=== PATIENT | male | born 1990 | race Caucasian/White ===

== ENCOUNTER 2016-06-08 13:16 | Inpatient (IN) | payer BC ==
[~2016-06-08] VITALS: Ht 165.1 cm; Wt 118.0 kg
[2016-06-08 14:30] VITALS: BP 128/68; PULSE 96; RESP 20; Ht 165.1 cm; Wt 118.0 kg
[2016-06-08 14:39] VITALS: PULSE 98
[2016-06-08] MEDS ORDERED: LORAZEPAM 2 MG INJ IV PRN (16:00)
[2016-06-08] MEDS ORDERED: ONDANSETRON 4 MG INJ IV PRN (16:00)
[2016-06-08] MEDS ORDERED: HYDROCODONE/APAP (5/325) TAB PO PRN (16:00)
[2016-06-08] MEDS ORDERED: ACETAMINOPHEN 325 MG TAB PO PRN (16:00)
[2016-06-08] MEDS ORDERED: NACL 0.9% 3 ML SYG IV SCH (16:00)
[2016-06-08 16:09] VITALS: BP 140/67; RESP 17
[2016-06-08 16:34] VITALS: PULSE 99
[2016-06-08] MEDS ORDERED: hydrALAzine 20 MG INJ IV PRN (17:00)
[2016-06-08 17:28] LABS: ADD SCAN DIFF NO
[2016-06-08 17:30] LABS: BASOPHIL # 0.1 10^3/ul (0.0-0.1); BASOPHILS % 0.4 % (0.0-2.0); EOSINOPHILS % 0.3 % (0.0-7.0); HEMATOCRIT 46.9 % (42.0-52.0); HEMOGLOBIN 15.5 g/dl (14.0-18.0); LYMPHOCYTES # 2.5 10^3/ul (0.8-2.9); LYMPHOCYTES % 16.4 % (15.0-51.0); MEAN CORPUSCULAR HEMOGLOBIN 27.9 pg (29.0-33.0); MEAN CORPUSCULAR VOLUME 84.5 fl (82.0-101.0); MEAN PLATELET VOLUME 10.6 fl (7.4-10.4); MONOCYTE # 0.9 10^3/ul (0.3-0.9); MONOCYTES % 5.7 % (0.0-11.0); NEUTROPHIL # 11.8 10^3/ul (1.6-7.5); NEUTROPHILS % 76.7 % (39.0-77.0); PLATELET COUNT 331 10^3/UL (140-415); RED BLOOD COUNT 5.55 10^6/ul (4.70-6.10); RED CELL DISTRIBUTION WIDTH 13.6 % (11.5-14.5); WHITE BLOOD COUNT 15.3 10^3/ul (4.8-10.8)
--- NOTE | 2016-06-08 17:36 | HP ---
DATE OF ADMISSION: 06/08/2016 REASON FOR ADMISSION: Transferred from [facility] for further evaluation of chest pain and EKG changes because of insurance reasons. SANDWICH COUNTER ATTENDANT: Coy Porras MD, Cardiology. HISTORY OF PRESENT ILLNESS: This is a 25-year-old male who denies any significant past medical history, who went to the emergency room at [facility] because of chest pressure that has been going on and off for the past 2 weeks. The patient verbalized that he has been having chest pressure, both on the right and left sides with some radiation of the pressure to the left shoulder blade on and off for the past 2 weeks. The patient denied any relieving or exacerbating factors. The patient also verbalized some vague dyspnea associated with this pain. He denied any associated nausea, vomiting or diaphoresis. The patient verbalized that he uses marijuana every couple of weeks. He is also a drinker. In the emergency room at [facility], the patient underwent a 12-lead EKG, which as per the ER physician showed T- wave inversions in leads III, aVF and V6 with Q-waves in leads III, aVF and aVR. Of note, this is as per the ER physician's documentation. I could not find the 12-lead EKG done at [facility]. The patient's D-dimer was negative. The patient's troponin I x1 was negative. The patient had a WBC of 15,000 and his urine drug screen was positive for cannabinoids. His random blood glucose was 112. His chest x-ray was negative. The patient was transferred to [facility] for further evaluation of his findings because of insurance reasons. PAST MEDICAL HISTORY: Denies. PAST SURGICAL HISTORY: Denies. HOME MEDICATIONS: None. ALLERGIES: NO KNOWN ALLERGIES. SOCIAL HISTORY: The patient lives at home. Currently works in a warehouse. Denies any tobacco use. Uses marijuana every 2 weeks. Social drinker. FAMILY HISTORY: Positive for diabetes and hypertension. No history of CAD. REVIEW OF SYSTEMS: A 12-point review of systems was made and the review of systems was negative other than what is mentioned in the history of present illness. PHYSICAL EXAMINATION: VITAL SIGNS: Temperature 98.0, pulse rate 91, respiratory rate 17, blood pressure 140/67, oxygen saturation 91% on room air. GENERAL: This is a morbidly obese male lying in bed in no apparent distress. HEENT: Head normocephalic and atraumatic. Eyes: Anicteric sclerae. Conjunctivae clear. ENT: Nasal septum is midline. Oral mucosa is moist. NECK: Supple. No JVD noticed. RESPIRATORY: Bilaterally clear to auscultation. No adventitious breath sounds heard. No use of accessory muscles of respiration. CARDIAC: Regular rhythm and rate. No murmurs. GASTROINTESTINAL: Abdomen soft, nontender and nondistended. Bowel sounds positive in all 4 quadrants. GENITOURINARY: Deferred. EXTREMITIES: No cyanosis, no clubbing, no edema. Peripheral pulses palpable. NEUROLOGIC: The patient is awake, alert and oriented. Cranial nerves are grossly intact. LABORATORY AND DIAGNOSTIC DATA: From [facility].Troponin T less than 0.01. WBC 15.0, hemoglobin 15.6, hematocrit 47.4, platelet count 292. Sodium 140, potassium 4.8, chloride 104, carbon dioxide 23, anion gap 11, BUN 11, creatinine 0.84, glucose 112, calcium 9, GFR greater than 60. TSH is 0.73. Free T4 is 1.20. BNP 18. D-dimer less than 0.27. Urine drug screen positive for cannabinoids. Chest x-ray. Normal chest x-ray. IMPRESSION: This is a 25-year-old male who went to the emergency room at [facility] because of nonspecific chest discomfort who was found to have some EKG changes, who will be admitted to [facility] because of insurance reasons for further management and evaluation. ASSESSMENT AND PLAN: 1. Atypical chest discomfort with reported EKG changes. As mentioned in the history of present illness, the patient had some ST-T changes and Q-waves as per the ER physician's documentation. However, the 12-lead EKG at [facility] did not show any evidence of Q-waves in any leads or any T -wave inversions. Nevertheless, the patient will be evaluated by a welder gas. Serial troponins will be ordered. A 2D echocardiogram will be ordered to evaluate the left ventricular ejection fraction, to evaluation for any wall motion abnormalities. 2. Morbid obesity. BMI of 43.3 kg/meter square. Weight reduction will be advised. A fasting lipid panel and a hemoglobin A1c will be obtained. 3. Leukocytosis on labs from [facility]. We will repeat a CBC. The patient denied any febrile illness. Plan. The patient is currently admitted to inpatient telemetry floor. The patient will be started on a regular diet. The patient will be started on DVT prophylaxis and gastrointestinal prophylaxis. The patient will remain a FULL CODE. The rest of the patient's management will be based on the clinical course, the results of diagnostic studies, and input from consultants. Based on the patient's clinical presentation, he most probably requires at least 1 midnight's stay for further management and evaluation of his clinical presentation. The case and management of this patient was fully discussed with Dr. Chowdary. KRIS CHOWDARY MD, AM/IVAN Conf#: [id number] DID#: [id number] MTDD
[2016-06-08 17:56] LABS: CREATINE KINASE 255 IU/L (23-200)
[2016-06-08 17:58] LABS: ALBUMIN 4.5 g/dl (3.3-4.9); ALBUMIN/GLOBULIN RATIO 1.32; BILIRUBIN,INDIRECT 0.2 mg/dl (0-1.1); BILIRUBIN,TOTAL 0.2 mg/dl (0.2-1.3); CALCIUM 9.4 mg/dl (8.4-10.2); CREATININE 0.7 mg/dl (0.61-1.24); MAGNESIUM 1.8 mg/dl (1.7-2.5); POTASSIUM 4.2 mmol/L (3.5-5.1); TOTAL PROTEIN 7.9 g/dl (6.1-8.1)
[2016-06-08 18:13] LABS: CK-MB 1.89 ng/ml (0.0-2.4); TROPONIN-I < 0.012 ng/ml (0.00-0.12)
[2016-06-08 18:28] LABS: THYROID STIMULATING HORMONE 0.403 MIU/L (0.465-4.680)
[2016-06-08 19:45] VITALS: BP 139/66; PULSE 85; RESP 18
[2016-06-08 20:16] VITALS: PULSE 82
[2016-06-08] MEDS: FAMOTIDINE 20 MG TAB PO SCH (20:29)
[2016-06-09] VITALS (11 sets, daily range): BP systolic 110–156; BP diastolic 58–110; PULSE 67–94; RESP 18
[2016-06-09 08:09] LABS: ADD SCAN DIFF NO
[2016-06-09 08:17] LABS: BASOPHIL # 0.1 10^3/ul (0.0-0.1); BASOPHILS % 0.6 % (0.0-2.0); EOSINOPHILS # 0.2 10^3/ul (0.0-0.5); EOSINOPHILS % 2.1 % (0.0-7.0); HEMATOCRIT 49.5 % (42.0-52.0); HEMOGLOBIN 15.8 g/dl (14.0-18.0); LYMPHOCYTES # 2.8 10^3/ul (0.8-2.9); LYMPHOCYTES % 29.9 % (15.0-51.0); MEAN CORPUSCULAR HEMOGLOBIN 27.7 pg (29.0-33.0); MEAN CORPUSCULAR HGB CONC 31.9 g/dl (32.0-37.0); MEAN CORPUSCULAR VOLUME 86.7 fl (82.0-101.0); MEAN PLATELET VOLUME 10.9 fl (7.4-10.4); MONOCYTE # 0.8 10^3/ul (0.3-0.9); MONOCYTES % 8.8 % (0.0-11.0); NEUTROPHIL # 5.4 10^3/ul (1.6-7.5); NEUTROPHILS % 57.9 % (39.0-77.0); PLATELET COUNT 311 10^3/UL (140-415); RED BLOOD COUNT 5.71 10^6/ul (4.70-6.10); RED CELL DISTRIBUTION WIDTH 13.9 % (11.5-14.5); WHITE BLOOD COUNT 9.4 10^3/ul (4.8-10.8)
[2016-06-09 08:37] LABS: ALANINE AMINOTRANSFERASE 97 IU/L (13-69); ALBUMIN 4.3 g/dl (3.3-4.9); ALBUMIN/GLOBULIN RATIO 1.16; ALKALINE PHOSPHATASE 75 IU/L (42-121); ANION GAP 11 (8-16); ASPARTATE AMINO TRANSFERASE 54 IU/L (15-46); BILIRUBIN,INDIRECT 0.6 mg/dl (0-1.1); BILIRUBIN,TOTAL 0.6 mg/dl (0.2-1.3); BLOOD UREA NITROGEN 15 mg/dl (7-20); CALCIUM 9.2 mg/dl (8.4-10.2); CARBON DIOXIDE 28 mmol/L (21-31); CHLORIDE 102 mmol/L (97-110); CHOL/HDL RATIO 5.2 RATIO; CHOLESTEROL 220 mg/dl (100-200); CREATINE KINASE 197 IU/L (23-200); CREATININE 0.75 mg/dl (0.61-1.24); CREATININE 0.76 mg/dl (0.61-1.24); GLUCOSE 106 mg/dl (70-220); HDL CHOLESTEROL 42 mg/dl (30-63); PHOSPHORUS 2.6 mg/dl (2.5-4.9); POTASSIUM 4.6 mmol/L (3.5-5.1); POTASSIUM 4.9 mmol/L (3.5-5.1); SODIUM 136 mmol/L (135-144); TRIGLYCERIDES 262 mg/dl (0-149)
[2016-06-09 08:50] LABS: CK-MB 1.61 ng/ml (0.0-2.4); TROPONIN-I < 0.012 ng/ml (0.00-0.12)
[2016-06-09] MEDS: FAMOTIDINE 20 MG TAB PO SCH (09:51)
[2016-06-09] MEDS ORDERED: ASPI-664 PO (12:22)
[2016-06-09] MEDS ORDERED: SIMV20TA2 PO (12:22)
--- NOTE | 2016-06-09 14:00 | PDOCDIS ---
Discharge Instructions DIAGNOSIS Discharge Diagnosis: chest pain CONDITION Patient Condition: Stable HOME CARE INSTRUCTIONS: Diet Instructions: Reduced Calorie ACTIVITY: Activity Restrictions: Slowly Increase Activity Rest between Activity FOLLOW UP/APPOINTMENTS Appointments Followup with your primary doctor within the next 1-2 weeks. If you don't have one please let someone know, we can give you resources that may help you pick one. You may call Dr Stephan Dooley's office. he's accepting new patients Name, Degree: Stephan Dooley MD Specialty: Internal Medicine Comments: Office Address: [address] [place] [address] [place], [place] [id number] Office Office You may also call your insurance company to assign one to you. Review your medication list with your nurse before leaving and if you need new prescriptions please let your nurse know. I may have made changes to your home medications or given you new prescriptions , please let your primary doctor know as well. Stay compliant with your medications and report any side effects to your PCP or pharmacist. Return to the ER if you have any concerns and cannot reach your doctors or call your insurance company, they usually have a nurse that can help you. JOANNE SOLIS Jun 09, 2016 14:00
--- NOTE | 2016-06-09 14:12 | RADRPT ---
Vent Rate: 87 bpm RR Interval: 0 msec MT Interval: 128 msec QRS Duration: 80 msec QT Interval: 354 msec QTC Interval: 425 msec P-R-T [place]: 54 - 82 - 60 degrees Normal sinus rhythm with sinus arrhythmia Normal ECG No previous tracing available for comparison Electronically Signed By: Aren Villa [id number]
--- NOTE | 2016-06-09 14:50 | RADRPT ---
Echocardiogram Report Patient Name: CONY STOKES Gender: Male Date: 1990 Study Date: 09-Jun-2016 Engineer Automated Equipment: [facility] Location: 5536 Ref. Physician: KRIS CASTELLON Quality: Adequate Procedures: Transthoracic echocardiogram with complete 2D, M-Mode, and doppler examination. Indications: Chest Pain. 2D/M Mode Doppler Measurement Value Normal Ranges Measurement Value Normal Ranges LVIDd 2D 4.5 3.5 - 5.6 cm AV Peak Asad 1.4 m/sec LVIDs 2D 3.2 2.1 - 4.1 cm AV Peak PG 7.5 mmHg LVPWd 2D 1.1 0.6 - 1.1 cm LVOT Peak Asad 0.7 m/sec IVSd 2D 1.0 0.6 - 1.1 cm LVOT Peak PG 2.0 mmHg AoR Diam 2D 2.4 2.0 - 3.7 cm MV E Peak Asad 1.1 m/sec EDV 2D 93.5 cm3 MV A Peak Asad 0.6 m/sec ESV 2D 33.1 cm3 MV E/A 2.0 MV Decel Time 149 msec MV Decel [place] 8 MV E/A 2.0 Findings Left Ventricle: Overall, normal left ventricular systolic function. Not all segments visualized. Normal left ventricular cavity size. Normal left ventricular wall thickness. Ejection fraction is visually estimated at 55 %. Tissue Doppler/Mitral Doppler indices are within normal limits. Right Ventricle: Normal right ventricular systolic function. Not well visualized. Left Atrium: The left atrium is normal in size. Right Atrium: The right atrium is normal in size. Mitral Valve: Mild mitral annular calcification. Trace mitral regurgitation. Aortic Valve: No significant aortic stenosis or insufficiency. Aortic valve not well visualized. Tricuspid Valve: Normal appearance and function of the tricuspid valve with trace physiologic regurgitation. Pulmonic Valve: Pulmonic valve not well visualized. Pericardium: Normal pericardium with no significant pericardial effusion. IVC: The IVC is not well visualized. Conclusions Overall, normal left ventricular systolic function. Not all segments visualized. Normal left ventricular cavity size. Normal left ventricular wall thickness. Ejection fraction is visually estimated at 55 %. Tissue Doppler/Mitral Doppler indices are within normal limits. Normal right ventricular systolic function. Not well visualized. The left atrium is normal in size. The right atrium is normal in size. No significant valvular stenosis or regurgitation seen. Normal pericardium with no significant pericardial effusion. Electronically Signed By: Galindo Barone 09-Jun-2016 14:49:56 -0700 Patient Name: CONY STOKES Study Date: 09-Jun-2016 [id number]
--- NOTE | 2016-06-09 22:06 | DS ---
Date/Time of Note Date/Time of Note DATE: 06/09/16 TIME: 22:05 Discharge Summary Admission/Discharge Info Admit Date/Time Jun 08, 2016 at 14:17 Discharge Date/Time Jun 09, 2016 at 16:00 Final Diagnosis see dictated report Patient Condition: Stable Hospital Course see dictated report Home Meds Active Scripts Simvastatin (Simvastatin) 20 Mg Tablet, 20 MG PO QHS, #30 TAB 2 Refills Prov:JOANNE SOLIS. 06/09/16 Aspirin* (Aspirin* EC) 81 Mg Tablet.dr, 81 MG PO DAILY for 30 Days, #2 TAB Prov:JOANNE SOLIS. 06/09/16 Pending Labs Laboratory Tests Test 06/09/16 07:20 White Blood Count 9.410^3/ul (4.8-10.8) Red Blood Count 5.7110^6/ul (4.70-6.10) Hemoglobin 15.8g/dl (14.0-18.0) Hematocrit 49.5% (42.0-52.0) Mean Corpuscular Volume 86.7fl (82.0-101.0) Mean Corpuscular Hemoglobin 27.7pg (29.0-33.0) Mean Corpuscular Hemoglobin Concent 31.9g/dl (32.0-37.0) Red Cell Distribution Width 13.9% (11.5-14.5) Platelet Count 47124^3/UL (140-415) Mean Platelet Volume 10.9fl (7.4-10.4) Neutrophils % 57.9% (39.0-77.0) Lymphocytes % 29.9% (15.0-51.0) Monocytes % 8.8% (0.0-11.0) Eosinophils % 2.1% (0.0-7.0) Basophils % 0.6% (0.0-2.0) Nucleated Red Blood Cells % 0.0/100WBC (0.0-0.0) Neutrophils # 5.410^3/ul (1.6-7.5) Lymphocytes # 2.810^3/ul (0.8-2.9) Monocytes # 0.810^3/ul (0.3-0.9) Eosinophils # 0.210^3/ul (0.0-0.5) Basophils # 0.110^3/ul (0.0-0.1) Nucleated Red Blood Cells # 0.010^3/ul (0.0-0.0) Sodium Level 136mmol/L (135-144) Potassium Level 4.9mmol/L (3.5-5.1) Chloride Level 102mmol/L (97-110) Carbon Dioxide Level 28mmol/L (21-31) Anion Gap 11 (8-16) Blood Urea Nitrogen 15mg/dl (7-20) Creatinine 0.76mg/dl (0.61-1.24) Glucose Level 106mg/dl (70-220) Calcium Level 9.0mg/dl (8.4-10.2) Phosphorus Level 2.6mg/dl (2.5-4.9) Magnesium Level 2.0mg/dl (1.7-2.5) Total Bilirubin 0.6mg/dl (0.2-1.3) Direct Bilirubin 0.00mg/dl (0.00-0.20) Indirect Bilirubin 0.6mg/dl (0-1.1) Aspartate Amino Transf (AST/SGOT) 54IU/L (15-46) Alanine Aminotransferase (ALT/SGPT) 97IU/L (13-69) Alkaline Phosphatase 75IU/L (42-121) Creatine Kinase 197IU/L (23-200) Creatine Kinase Index 0.8 Creatinine Kinase MB (Mass) 1.61ng/ml (0.0-2.4) Troponin I < 0.012ng/ml (0.00-0.12) Total Protein 8.0g/dl (6.1-8.1) Albumin 4.3g/dl (3.3-4.9) Globulin 3.70g/dl (1.3-3.2) Albumin/Globulin Ratio 1.16 Triglycerides Level 262mg/dl (0-149) Cholesterol Level 220mg/dl (100-200) LDL Cholesterol, Calculated 126mg/dl HDL Cholesterol 42mg/dl (30-63) Cholesterol/HDL Ratio 5.2RJOANNE CARDONA Jun 09, 2016 22:06 HDL Cholesterol 42mg/dl (30-63) Cholesterol/HDL Ratio 5.2RJOANNE CARDONA Jun 09, 2016 22:06
--- NOTE | 2016-06-12 11:58 | DS ---
DATE OF ADMISSION: 06/08/2016 DATE OF DISCHARGE: 06/09/2016 FINAL DIAGNOSES 1. Atypical chest discomfort with reported EKG changes. EKG changes at this facility showed no evid ence of K waves or any T wave inversion. The patient has been evaluated by apparel manager and ruled ou t by 3 negative troponins. Chest pain is likely secondary to musculoskeletal causes. The patient is cleared for discharge and outpatient followup. 2. Morbid obesity with BMI of 43.3. The patient has been counseled on the need for weight loss wit h the willingness to try. 3. Leukocytosis, likely reactive, now resolved. 4. Dyslipidemia with fatty liver, started on low dose statin. 5. Heavy alcohol use with transaminitis. The patient is status post alcohol cessation counseling a nd I have educated him extensively on the dangers of alcohol use superimposed on fatty liver disease . 6. Recreational marijuana use. CONSULTS ON THE CASE: Dr. Porras for Cardiology. INTERVENTIONS: The patient had a 2D echo, showed EF of 55%, normal right ventricular systolic funct ion, normal left ventricular systolic function and size. No significant valvular disease, no perica rditis or effusion. HOSPITAL COURSE: A short hospitalization course. Full details are available in chart for review. I n summary, this patient was transferred to our facility after he had presented to [facility] with re current chest pain and neck pain. The doctor over at [facility] was concerned about EKG abnormalitie s and recommended that patient be admitted for a workup. Patient is capitated at our facility and s o he was transferred to us for further management. He was ruled out, seen by cardiology and at this point his symptoms are nonconcerning for an acute coronary event. More likely it could be associate d with his marijuana smoking. Incidentally, he was found to have elevated liver enzymes and fatty l iver as well as dyslipidemia. We strongly recommended that patient quit alcohol use. Counseled him about it and he verbalized understanding and willingness to try. At this time he has been found to b e in stable condition and is being discharged home. Outpatient followup is recommended with primary care physician within 1 to 2 weeks. The patient is encouraged to return to the emergency room if sy mptoms recur or become concerning. He has been given information about availability for outpatient [facility] and he has verbalized understanding. DISCHARGE MEDICATIONS: 1. Simvastatin 20 p.o. at bedtime. 2. Aspirin 81 daily. DISCHARGE ACTIVITY: As tolerated. Weight loss was strongly counseled. DIET: Recommended diet, low calorie, low cholesterol, low fat. Overall time spent on discharge coordination was more than 45 minutes. Dictated By: JOANNE SOLIS MD BA/NTS Conf#: [id number] DID#: [id number]
== END 2016-06-09 16:00 | disposition home or self-care (01) | DRG 313 ==
LOC: MS4 14:17
PROVIDERS: ADMIT Internal Medicine; ATTEND Internal Medicine
DX: R07.89 Other chest pain (principal); K76.0 Fatty (change of) liver, not elsewhere classified; Z68.41 Body mass index [BMI] 40.0-44.9, adult; E66.01 Morbid (severe) obesity due to excess calories; D72.829 Elevated white blood cell count, unspecified; Z83.3 Family history of diabetes mellitus; Z82.49 Family history of ischemic heart disease and other diseases of the circulatory system; E78.5 Hyperlipidemia, unspecified; R74.0 Nonspecific elevation of levels of transaminase and lactic acid dehydrogenase [LDH]; F12.90 Cannabis use, unspecified, uncomplicated; Z72.89 Other problems related to lifestyle
CPT/HCPCS: 80048; 80053; 80061; 82550; 82553; 82652; 83036; 83735; 84100; 84439; 84443; 84484; 85025; 87081; 93005; 93306